=== PATIENT | female | born 1960 | race African-American/Black ===

== ENCOUNTER 2018-08-27 10:03 | Inpatient (IN) | payer MEDICAID, SELFPAY ==
[~2018-08-27] VITALS: Ht 175.3 cm; Wt 146.3 kg
[~2018-08-27 10:03] MED LIST: CYCL10 PO; HYDR-3971 PO; HYDR25TA PO; METO50 PO
[2018-08-27 10:59] LABS: APPEARANCE,URINE CLOUDY (CLEAR); BILIRUBIN,URINE NEGATIVE (NEGATIVE); GLUCOSE, URINE (UA) NEGATIVE (NEGATIVE); KETONES,URINE NEGATIVE (NEGATIVE); LEUKOCYTE ESTERASE ,URINE NEGATIVE (NEGATIVE); NITRATE,URINE NEGATIVE (NEGATIVE); OCCULT BLOOD,URINE MODERATE (NEGATIVE); PROTEIN,URINE POS 1+ (NEGATIVE); UROBILINOGEN,URINE 0.2 mg/dL (<=1.0)
[2018-08-27 11:01] LABS: BASOPHILS % (AUTO) 0.6 % (0.0-2.0); EOSINOPHILS % (AUTO) 1.6 % (1.0-6.0); HEMATOCRIT 39.4 % (36-46); LYMPHOCYTES # (AUTO) 1.9 K/uL (1.0-4.8); LYMPHOCYTES % (AUTO) 17.2 % (22.0-44.0); MEAN CORPUSCULAR HEMOGLOBIN 31.9 pg (26.0-34.0); MEAN CORPUSCULAR VOLUME 97 fL (80-100); MONOCYTES # (AUTO) 0.7 K/uL (0.1-1.0); MONOCYTES % (AUTO) 6.8 % (2.0-9.0); NEUTROPHILS % (AUTO) 73.8 % (40.0-70.0); PLATELET COUNT (AUTO) 255 K/uL (150-450); RED BLOOD CELL COUNT(AUTO) 4.08 MIL/uL (4.00-5.20); RED CELL DISTRIBUTION WIDTH 12.7 % (11.5-14.5)
[2018-08-27 11:11] LABS: ANION GAP 9 mmol/L (8-16); CALCIUM, TOTAL 9.1 mg/dL (8.8-10.5); CARBON DIOXIDE 28 mmol/L (22-29); CHLORIDE 103 mmol/L (98-107); CREATININE 0.98 mg/dL (0.60-1.30); GLOMERULAR FILTR. RATE CALC > 60 mL/min (>60); GLUCOSE,RANDOM 111 mg/dL (70-110); POTASSIUM 3.2 mmol/L (3.5-5.1); SODIUM SERUM 140 mmol/L (136-145); UREA NITROGEN, BLOOD 6 mg/dL (7-18)
[2018-08-27 11:11] LABS: BACTERIA,URINE None Seen /HPF (None Seen); SQUAMOUS EPITHELIAL CELL,UR Few /LPF (None Seen); WBC,URINE 0-2 /HPF (0-5)
[2018-08-27 11:17] LABS: ALANINE AMINOTRANSFERASE 18 U/L (12-78); ALKALINE PHOSPHATASE 108 U/L (46-116); ASPARTATE AMINOTRANSFERASE 18 U/L (15-37); BILIRUBIN,TOTAL 0.6 mg/dL (0.1-1.0); LIPASE 59 U/L (73-393); TOTAL PROTEIN, SERUM 7.6 g/dL (6.4-8.2)
[2018-08-27] MEDS ORDERED: SODIUM CHLORIDE 0.9% 2,000 ML IV ONE (12:00)
[2018-08-27] MEDS ORDERED: ONDANSETRON HCL 4 MG/2 ML VIAL IVP ONE (12:00)
[2018-08-27] MEDS ORDERED: HYDROmorphone 2 MG/ML SYRINGE IVP ONE (12:00)
[2018-08-27] MEDS ORDERED: 0.9% SODIUM CHLORIDE 10 ML SYRINGE IVP PRN (13:30)
[2018-08-27] MEDS ORDERED: PIPERACILLIN/TAZO 3.375 GM/D5W 50 ML IV ONE (13:30)
[2018-08-27] MEDS ORDERED: ONDANSETRON HCL 4 MG/2 ML VIAL IVP PRN ×2 (13:30→13:45)
[2018-08-27] MEDS ORDERED: ACETAMINOPHEN 325 MG TABLET PO PRN ×2 (13:30→13:45)
[2018-08-27] MEDS ORDERED: POTASSIUM CHL 10 MEQ/WATER 50 ML IV PRN (13:45)
[2018-08-27] MEDS: PANTOPRAZOLE SODIUM 40 MG/VIAL IVP SCH (13:47)
[2018-08-27] MEDS: SODIUM CHLORIDE 0.9% 1,000 ML IV SCH (13:48)
[2018-08-27 14:51] VITALS: BP 144/58
[2018-08-27] MEDS: MORPHINE SULFATE 2 MG/ML SYRINGE IVP PRN ×2 (17:01→23:21)
[2018-08-27] MEDS: POTASSIUM CHLORIDE 20 MEQ ER TABLET PO PRN (17:39)
[2018-08-27 19:37] VITALS: BP 154/91
[2018-08-27 23:37] VITALS: BP 158/87
[2018-08-28] MEDS: SODIUM CHLORIDE 0.9% 1,000 ML IV SCH ×2 (04:24→19:51)
[2018-08-28] MEDS: POTASSIUM CHLORIDE 20 MEQ ER TABLET PO PRN (04:34)
[2018-08-28 04:42] VITALS: BP 154/95
[2018-08-28 08:04] VITALS: BP 126/79
[2018-08-28] MEDS: MORPHINE SULFATE 2 MG/ML SYRINGE IVP PRN ×2 (08:24→21:48)
[2018-08-28] MEDS: PANTOPRAZOLE SODIUM 40 MG/VIAL IVP SCH (08:24)
[2018-08-28] MEDS: VERAPAMIL HCL 120 MG TABLET PO SCH (08:24)
[2018-08-28 12:55] VITALS: BP 141/70
[2018-08-28 16:02] VITALS: BP 125/72
[2018-08-28 20:01] VITALS: BP 122/72
[2018-08-28 23:50] VITALS: BP 153/88
[2018-08-29 04:44] VITALS: BP 148/78
[2018-08-29 07:40] VITALS: BP 127/72
[2018-08-29] MEDS: PANTOPRAZOLE SODIUM 40 MG/VIAL IVP SCH (08:20)
[2018-08-29] MEDS: VERAPAMIL HCL 120 MG TABLET PO SCH (08:20)
[2018-08-29 08:34] LABS: BASOPHILS % (AUTO) 0.4 % (0.0-2.0); EOSINOPHILS % (AUTO) 6.8 % (1.0-6.0); HEMATOCRIT 37.4 % (36-46); HEMOGLOBIN 12.2 g/dL (12.0-16.0); LYMPHOCYTES # (AUTO) 3.3 K/uL (1.0-4.8); MEAN CORPUSCULAR HEMOGLOBIN 31.6 pg (26.0-34.0); MEAN CORPUSCULAR HGB CONC 32.7 G/dL (31.0-37.0); MEAN CORPUSCULAR VOLUME 97 fL (80-100); MONOCYTES # (AUTO) 0.7 K/uL (0.1-1.0); MONOCYTES % (AUTO) 7.6 % (2.0-9.0); NEUTROPHILS # (AUTO) 4.7 K/uL (1.8-7.7); PLATELET COUNT (AUTO) 265 K/uL (150-450); RED BLOOD CELL COUNT(AUTO) 3.87 MIL/uL (4.00-5.20); RED CELL DISTRIBUTION WIDTH 12.6 % (11.5-14.5)
[2018-08-29 09:05] LABS: NEUTROPHILS % (AUTO) 65.1 % (40.0-70.0)
[2018-08-29 11:45] VITALS: BP 118/64
[2018-08-29] MEDS ORDERED: ACID1GRA PO (12:42)
[2018-08-29] MEDS ORDERED: VERA120 PO (12:43)
[2018-08-29 16:29] VITALS: BP 118/77
== END 2018-08-29 17:05 | disposition home or self-care (01) | DRG 249 ==
LOC: EDUNIT# 10:03 → EMS 10:05 → 5S 13:46 → 4E 14:30
PROVIDERS: ADMIT Internal Medicine; ATTEND Internal Medicine
DX: A08.4 Viral intestinal infection, unspecified (principal); Z68.42 Body mass index [BMI] 45.0-49.9, adult; E66.9 Obesity, unspecified; I10 Essential (primary) hypertension; G89.29 Other chronic pain; M54.5 Low back pain; E87.6 Hypokalemia; F41.1 Generalized anxiety disorder; Z90.710 Acquired absence of both cervix and uterus; Z90.49 Acquired absence of other specified parts of digestive tract; Z91.013 Allergy to seafood; Z79.899 Other long term (current) drug therapy
CPT/HCPCS: 74176; 84132; 89055; 93005; C9113; G0378; J1170; J2270; J2405; J2543; J3480; J7030